=== PATIENT | female | born 1960 | race Caucasian/White ===

== ENCOUNTER 2017-09-06 10:50 | Inpatient (IN) | payer BC ==
[~2017-09-06] VITALS: Ht 157.5 cm; Wt 63.5 kg
--- NOTE | 2017-09-06 11:25 | NUR ---
PATIENT TO ED DT RIGHT SIDE FACIAL DROOP AND NUMBNESS X 2 DAYS. PATIENT IS AWAKE AND ALERT. SATING WELL ON ROOM AIR, CURRETNLY RECEIVING CHEMO FOR BREAST CANCER, LAST CHEMO WAS MONDAY. PATIENT ABLE TO AMBULATE. AFEBRILE. VSS
[2017-09-06 12:57] LABS: BASOPHILS % (AUTO) 2.2 % (0.0-2.0); CREATININE 0.8 mg/dL (0.6-1.3); EOSINOPHILS # (AUTO) 0.1 /CMM (0.0-0.7); EOSINOPHILS % (AUTO) 3.6 % (0.0-6.0); HEMATOCRIT 31 % (33-45); HEMOGLOBIN 10.2 g/dL (11.5-14.8); LYMPHOCYTES # (AUTO) 1.2 /CMM (0.8-4.8); LYMPHOCYTES % (AUTO) 80.3 % (20.0-44.0); MEAN CORPUSCULAR HEMOGLOBIN 28 PG (26.0-33.0); MEAN CORPUSCULAR HGB CONC 33 g/dl (31.0-36.0); MEAN CORPUSCULAR VOLUME 85 fL (82-100); MONOCYTES # (AUTO) 0.1 /CMM (0.1-1.30); MONOCYTES % (AUTO) 7.4 % (2.0-12.0); NEUTROPHILS # (AUTO) 0.1 /CMM (1.8-8.9); NEUTROPHILS % (AUTO) 6.5 % (43.0-81.0); PLATELET COUNT (AUTO) 257 /CMM (150-450); RDW COEFFICIENT OF VARIATION 22.5 (11.5-15.0); RED BLOOD CELL COUNT(AUTO) 3.67 MIL/uL (4.0-5.2)
--- NOTE | 2017-09-06 12:58 | NUR ---
PAGED DR GARCIA FOR CONSULT
[2017-09-06 12:59] LABS: PROTHROMBIN TIME 10.4 SECS (9.5-12.7)
[2017-09-06 13:02] LABS: ALBUMIN 3.2 g/dL (3.4-5.0); BILIRUBIN,TOTAL 0.8 mg/dL (0.2-1.0); MAGNESIUM 2.1 mg/dL (1.8-2.4); PHOSPHORUS 1.9 mg/dL (2.5-4.9)
[2017-09-06 13:03] LABS: WHITE BLOOD COUNT (AUTO) 1.5 K/uL (4.3-11.0)
[2017-09-06] MEDS ORDERED: ACYCLOVIR 200 MG CAPSULE ONE (13:27)
[2017-09-06] MEDS ORDERED: predniSONE 20 MG TABLET ONE (13:27)
[2017-09-06] MEDS ORDERED: predniSONE 20 MG TABLET PO ONE (13:30)
[2017-09-06] MEDS ORDERED: ACYCLOVIR 200 MG CAPSULE PO ONE (13:30)
--- NOTE | 2017-09-06 13:34 | NUR ---
PO MEDS GIVEN ORDERED; NO ASPIRATION NOTED
[2017-09-06] MEDS ORDERED: HYDR-551 PO ×2 (13:38)
[2017-09-06] MEDS ORDERED: GABA-534 PO (13:38)
[2017-09-06] MEDS ORDERED: LEVO50TA8 PO (13:38)
[2017-09-06] MEDS ORDERED: POTASSIUM CHLORIDE 20 MEQ TAB.PRT.SR PO ONE ×2 (14:00→14:06)
[2017-09-06 14:13] LABS: BAND % (MANUAL) 3 % (0.0-5.0); EOSINOPHILS % (MANUAL) 4 % (0-4); LYMPHOCYTES % (MANUAL) 75 % (16-48); MONOCYTES % (MANUAL) 7 % (0-11.0); NEUTROPHILS % (MANUAL) 7 (42-76); REACTIVE LYMPHOCYTES 4 % (0-0)
--- NOTE | 2017-09-06 14:21 | NUR ---
REPORT GIVEN TO INGA HIGHTOWER FOR CHUY
--- NOTE | 2017-09-06 14:58 | NUR ---
PATIENT TRANSPORTED TO TELE. S
[2017-09-06 15:30] VITALS: BP 135/86
[2017-09-06] MEDS ORDERED: K PHOS NEUTRAL 250 MG TABLET PO ONE (15:30)
--- NOTE | 2017-09-06 15:30 | NUR ---
SOURCING ANALYST ADMITTING NOTES ADMITTED PT FROM ER WITH DX OF LEFT FACIAL WEAKNESS WITH NEUTROPENIA.PT IS ALERT AND ORIENTED X4.AMBULATES AD SANTOS WITH STEADY GAIT.PT C/O BACK PAIN(PA 11/18) DUE TO SPINAL SX 35 YRS AGO.DENIES ANY DISTRESS.SKIN INTACT.PT GETS CHEMO EVERY 3 WKS() IN [facility].SISTER AT BEDSIDE STATING THAT PT HAS MOUTH SORES DUE TO CHEMO AND IS TAKING ACYCLOVIR.CALL LIGHT PLACED WITHIN REACH.
[2017-09-06 16:00] VITALS: BP 135/86
[2017-09-06] MEDS ORDERED: IV NS 0.9% 1,000 ML IV PRN (16:30)
[2017-09-06] MEDS ORDERED: ZOLPIDEM TARTRATE 5 MG TABLET PO PRN (16:30)
[2017-09-06] MEDS ORDERED: Z GUARD REMEDY 2 OZ OINT TP PRN (16:30)
[2017-09-06] MEDS ORDERED: ACETAMINOPHEN 325 MG TABLET PO PRN (16:30)
[2017-09-06] MEDS ORDERED: HYDROCODONE/APAP 10/325MG 1 EA TABLET PO PRN (16:30)
[2017-09-06] MEDS ORDERED: MORPHINE SULFATE INJ 2 MG/ML DISP.SYRIN IV PRN (16:30)
[2017-09-06] MEDS ORDERED: ONDANSETRON HCL/PF 4 MG/2 ML VIAL IVP PRN (16:30)
[2017-09-06] MEDS ORDERED: HYDROMORPHONE INJ 2 MG/ML DISP.SYRIN IV PRN (17:00)
--- NOTE | 2017-09-06 17:11 | NUR ---
SEEN BY DR LEONE WITH ORDERS FOR LUMBAR PUNCTURE.PT/FAMILY REFUSED.DR LEONE AT BEDSIDE TALKING TO THE FAMILY.WITH ORDER OF MRI BRAIN WITH CONTRAST STAT.NOTIFIED RADIOLOGY C/O PABLO WHO WILL NOTIFY MURALI AND NEEDS APPROVAL OF DR IRWIN.
[2017-09-06] MEDS ORDERED: TEMAZEPAM 15 MG CAPSULE PO PRN (17:30)
--- NOTE | 2017-09-06 17:50 | NUR ---
DR LEONE IS AT BEDSIDE DOING LUMBAR PUNCTURE PROCEDURE AT THIS TIME.WILL ADMINISTER NEURONTIN PO LATER POST LUMBAR PUNCTURE.
--- NOTE | 2017-09-06 18:10 | NUR ---
S/P LUMBAR PUNCTURE PROCEDURE BY DR LEONE DONE AND OBTAINED 8.75 ML LUMBAR FLUID AND SENT TO PATHOLOGY FOR PATHOLOGY AND CYTOLOGY TESTS.NORCO 10/325 MG 1 TAB PO,NEURONTIN AND HOOKED IVF NS AT 75 ML/HR INFUSION GIVEN.
[2017-09-06] MEDS: GABAPENTIN 300 MG CAPSULE PO SCH ×2 (18:34→21:48)
[2017-09-06 19:12] LABS: CSF GLUCOSE 88 mg/dL (40-70); CSF PROTEIN 46.5 mg/dL (15-45)
--- NOTE | 2017-09-06 19:30 | NUR ---
TELE/DERRICK CAR OPERATOR; RECEIVED PT IN BED AWAKE, ALERT AND ORIENTED. ON REVERSE ISOLATION OBSERVED. IVF ON PROGRESS. BREATHING NON LABORED. BED ON LOWER POSITIONED AND LOCKED FOR SAFETY. SIDE RAILS UPPER PART OF BED ARE UP FOR SAFETY. WILL CONTINUE TO MONITOR. CALL LIGHT WITHIN REACH.
--- NOTE | 2017-09-06 19:45 | NUR ---
TELE/SLASHER TENDER HELPER; PT WENT TO RADIOLOGY FOR MRI FOR THE BRAIN VIA WHEELCHAIR WITH NEGATIVE TURNER.
[2017-09-06 20:00] VITALS: BP 119/75
--- NOTE | 2017-09-06 20:30 | NUR ---
TELE/SUPERINTENDENT DRILLING AND PRODUCTION; PT BACK FOR MRI WITH THE TELECOM MANAGER VIA WHEELCHAIR.
[2017-09-06] MEDS ORDERED: GADOVERSETAMIDE 2.5 MMOL/5 ML VIAL IJ ONE (20:37)
[2017-09-06] MEDS ORDERED: LANOLIN/MIN OIL/PETROLAT,WHT 3.5 GM TUBE RIGHTEYE SCH (22:00)
--- NOTE | 2017-09-06 22:00 | NUR ---
TELE/VOLLEYBALL ASSISTANT COACH; WENT BRP WITH ASSIST. VOIDED ONLY. BACK TO BED WITH HELP.
[2017-09-06] MEDS: DEXAMETHASONE SOD PHOSPHATE 4 MG/ML VIAL IV SCH (23:26)
[2017-09-07] VITALS: BP 112/72
--- NOTE | 2017-09-07 | NUR ---
TELE/GEOGRAPHIC INFORMATION SYSTEMS ANALYST; SLEEPING AT THIS TIME.
--- NOTE | 2017-09-07 01:30 | NUR ---
TELE/CRAWLER TRACTOR OPERATOR; PT ASSISTED TO THE BATHROOM VOIDED ONLY. ASSISTED BACK TO BED. PT ASKED FOR WARM TEA. PT SAID SHE HAS SLIGHT SORE THROAT ONLY WHEN SHE SWALLOW.
[2017-09-07 04:00] VITALS: BP 124/91
--- NOTE | 2017-09-07 06:17 | NUR ---
TELE/OTOLARYNGOLOGY SURGEON; PT SLEPT FAIRLY. IVF ON PROGRESS. VOIDED AT THE BATHROOM. PT WAS ON ST 103 - 104. NOTED SHE COUGHED OCC. DRY. WILL CONTINUE TO MONITOR. CALL LIGHT WITHIN REACH. WILL ENDORSE TO THE DAY SHIFT NURSE.
[2017-09-07] MEDS: DEXAMETHASONE SOD PHOSPHATE 4 MG/ML VIAL IV SCH ×2 (06:38→12:07)
[2017-09-07 06:45] LABS: EOSINOPHILS % (AUTO) 0.3 % (0.0-6.0); HEMATOCRIT 34 % (33-45); HEMOGLOBIN 10.9 g/dL (11.5-14.8); LYMPHOCYTES # (AUTO) 1.3 /CMM (0.8-4.8); LYMPHOCYTES % (AUTO) 77.2 % (20.0-44.0); MEAN CORPUSCULAR HEMOGLOBIN 28 PG (26.0-33.0); MEAN CORPUSCULAR HGB CONC 33 g/dl (31.0-36.0); MEAN CORPUSCULAR VOLUME 86 fL (82-100); MONOCYTES # (AUTO) 0.2 /CMM (0.1-1.30); MONOCYTES % (AUTO) 12.2 % (2.0-12.0); NEUTROPHILS # (AUTO) 0.2 /CMM (1.8-8.9); NEUTROPHILS % (AUTO) 10.3 % (43.0-81.0); PLATELET COUNT (AUTO) 278 /CMM (150-450); RDW COEFFICIENT OF VARIATION 22.9 (11.5-15.0); RED BLOOD CELL COUNT(AUTO) 3.91 MIL/uL (4.0-5.2)
[2017-09-07 07:00] LABS: ALBUMIN 3.2 g/dL (3.4-5.0); BILIRUBIN,TOTAL 0.8 mg/dL (0.2-1.0); CALCIUM, SERUM 9.2 mg/dL (8.5-10.1); CREATININE 0.9 mg/dL (0.6-1.3); MAGNESIUM 2.3 mg/dL (1.8-2.4); PHOSPHORUS 2.5 mg/dL (2.5-4.9); POTASSIUM 3.9 mmol/L (3.5-5.1); TOTAL PROTEIN, SERUM 8.5 g/dL (6.4-8.2)
[2017-09-07 07:02] LABS: WHITE BLOOD COUNT (AUTO) 1.7 K/uL (4.3-11.0)
[2017-09-07 07:12] LABS: THYROID STIMULATING HORMONE 0.18 uIU/mL (0.358-3.74)
[2017-09-07] MEDS ORDERED: LEVOTHYROXINE SODIUM 50 MCG TABLET PO SCH (07:30)
[2017-09-07 08:00] VITALS: BP 120/79
--- NOTE | 2017-09-07 08:30 | NUR ---
RECEIVED PATIENT IN STABLE CONDITION. PATIENT IS ALERT AND ORIENTED. IN NO APPARENT DISTRESS. BEDSIDE RAILS ARE UP X2. BED IS LOCKED AND LOWERED. WILL CONTINUE TO MONITOR.
[2017-09-07] MEDS: GABAPENTIN 300 MG CAPSULE PO SCH ×2 (08:37→12:07)
[2017-09-07 09:46] LABS: BAND % (MANUAL) 1 % (0.0-5.0); EOSINOPHILS % (MANUAL) 3 % (0-4); LYMPHOCYTES % (MANUAL) 74 % (16-48); MONOCYTES % (MANUAL) 11 % (0-11.0); NEUTROPHILS % (MANUAL) 11 (42-76)
[2017-09-07] MEDS ORDERED: VALACYCLOVIR HCL 500 MG TABLET PO SCH (13:30)
[2017-09-07] MEDS ORDERED: PRED20TA PO (14:11)
[2017-09-07] MEDS ORDERED: ACYC400T PO (14:11)
--- NOTE | 2017-09-07 15:41 | NUR ---
PATIENT DISCHARGED IN STABLE CONDITION.
[2017-09-11 09:15] LABS: *WEST NILE VIRUS IgG, CSF Negative (Negative)
[2017-09-11 11:14] LABS: *WEST NILE VIRUS IgM, CSF Negative (Negative); VDRL, CSF Non Reactive (Non Rea:<1:1)
[2017-09-11 12:11] LABS: *BACT BETA STREP (GROUP B) AG Negative (Negative); *BACT NEISSERIA MENING. AG Negative (Negative); *BACT STREP PNEUMONIAE AG Negative (Negative); *CRYPTOCOCCUS AG, CSF Negative (Negative)
== END 2017-09-07 15:31 | disposition home or self-care (01) | DRG 598 ==
LOC: ER 10:56 → TELE 13:54 → MED 09-07 07:59
PROVIDERS: ADMIT Nurse Practitioner Acute Care; ATTEND Nurse Practitioner Acute Care
PROC: 009U3ZX Drainage of Spinal Canal, Percutaneous Approach, Diagnostic (ICD-10-PCS; principal; 2017-09-06)
DX: C50.919 Malignant neoplasm of unspecified site of unspecified female breast (principal); C79.31 Secondary malignant neoplasm of brain; D70.9 Neutropenia, unspecified; E87.6 Hypokalemia; Z79.899 Other long term (current) drug therapy; D64.9 Anemia, unspecified; Z92.3 Personal history of irradiation; G51.0 Bell's palsy; Z92.21 Personal history of antineoplastic chemotherapy
CPT/HCPCS: 36415; 70450-TC; 70553-TC; 71010-TC; 80053-TC; 80061-TC; 83735-TC; 84100-TC; 84443-TC; 84484-TC; 85025-TC; 85730-TC; 86592; 86635; 86694; 86788; 86789; 87070-TC; 87081-TC; 87802; 87899; 89051-TC; 93307-TC; 93880-TC; A4606; A9579; J1100; J7030; Z7610

== ENCOUNTER 2017-09-08 12:07 | Inpatient (IN) | payer BC ==
[~2017-09-08] VITALS: Ht 157.5 cm; Wt 75.7 kg
[2017-09-08] VITALS (12 sets, daily range): BP systolic 81–125; BP diastolic 43–74
[~2017-09-08 12:07] MED LIST: ACYC400T PO; GABA-534 PO; HYDR-551 PO; LEVO50TA8 PO; PRED20TA PO
--- NOTE | 2017-09-08 12:20 | NUR ---
[id number] FROM HOME: ALOC. FEVER, 103.3 UPON ARRIVAL TO ER. PATIENT A/OX 1. BREATHING EVEN AND UNLABORED. NO SOB. VITALS STABLE. SAFETY AND COMFORT MEASURES IN PLACE. NEW IV STARTED ON LAC, 20 G. BLOOD DRAWN AND SENT TO LAB, SEPSIS WORKUP ORDERED, WILL CONTINUE TO MONITOR.
[2017-09-08] MEDS ORDERED: IV NS 0.9% 1,000 ML BAG IV ONE ×2 (12:30)
[2017-09-08] MEDS ORDERED: ACETAMINOPHEN 650 MG/SUPP.RECT RC ONE ×2 (12:30→12:32)
[2017-09-08] MEDS ORDERED: PIPERACILLIN /TAZOBACTAM 3.375 G in IV D5W 50 ML IV ONE (12:30)
[2017-09-08 12:39] LABS: BASOPHILS % (AUTO) 0.5 % (0.0-2.0); EOSINOPHILS % (AUTO) 0.4 % (0.0-6.0); HEMATOCRIT 32 % (33-45); HEMOGLOBIN 10.4 g/dL (11.5-14.8); LYMPHOCYTES # (AUTO) 0.8 /CMM (0.8-4.8); LYMPHOCYTES % (AUTO) 46.7 % (20.0-44.0); MEAN CORPUSCULAR HEMOGLOBIN 28 PG (26.0-33.0); MEAN CORPUSCULAR HGB CONC 32 g/dl (31.0-36.0); MEAN CORPUSCULAR VOLUME 85 fL (82-100); MONOCYTES # (AUTO) 0.7 /CMM (0.1-1.30); MONOCYTES % (AUTO) 40.2 % (2.0-12.0); NEUTROPHILS # (AUTO) 0.2 /CMM (1.8-8.9); NEUTROPHILS % (AUTO) 12.2 % (43.0-81.0); PLATELET COUNT (AUTO) 413 /CMM (150-450); RED BLOOD CELL COUNT(AUTO) 3.79 MIL/uL (4.0-5.2)
[2017-09-08 12:42] LABS: WHITE BLOOD COUNT (AUTO) 1.7 K/uL (4.3-11.0)
[2017-09-08 12:43] LABS: CALCIUM, SERUM 9.1 mg/dL (8.5-10.1); CARBON DIOXIDE 24 mmol/L (21-32); CHLORIDE 106 mmol/L (98-107); CREATININE 0.9 mg/dL (0.6-1.3); GLUCOSE 91 mg/dL (74-106); POTASSIUM 3.5 mmol/L (3.5-5.1); SODIUM SERUM 141 mmol/L (136-145); UREA NITROGEN, BLOOD 4 mg/dL (7-18)
[2017-09-08 12:47] LABS: INR 1.1 (0.87-1.13); PROTHROMBIN TIME 11.4 SECS (9.5-12.7)
[2017-09-08 12:49] LABS: ALANINE AMINOTRANSFERASE 102 U/L (12-78); ALBUMIN 3.2 g/dL (3.4-5.0); ALKALINE PHOSPHATASE 680 U/L (46-116); ASPARTATE AMINOTRANSFERASE 93 U/L (15-37); BILIRUBIN,DIRECT 0.3 mg/dL (0.0-0.2); BILIRUBIN,TOTAL 0.9 mg/dL (0.2-1.0)
--- NOTE | 2017-09-08 12:50 | NUR ---
PATIENT MEDICATED PER MD ORDERS.
[2017-09-08 12:51] LABS: TROPONIN I < 0.017 ng/mL (0.00-0.056)
[2017-09-08] MEDS ORDERED: FLUCONAZOLE IN NS 100 MG in PREMIX 1 EA IV SCH ×4 (13:00→16:00)
--- NOTE | 2017-09-08 13:12 | NUR ---
PATIENT TAKEN TO CT VIA STRETCHER
--- NOTE | 2017-09-08 13:25 | NUR ---
PATIENT RETURNED FROM CT.
[2017-09-08] MEDS ORDERED: hydrALAZINE HCL IV 20 MG VIAL IV ONE (13:30)
[2017-09-08] MEDS ORDERED: TBO-FILGRASTIM 480 MCG/0.8 ML ML SQ ONE (13:30)
[2017-09-08 14:24] LABS: APPEARANCE,URINE Clear (CLEAR); BILIRUBIN,URINE Negative (NEGATIVE); BLOOD, URINE Negative Ery/uL (NEGATIVE); COLOR,URINE Light yellow (YELLOW); KETONES,URINE Negative (NEGATIVE); LEUKOCYTE ESTERASE ,URINE Negative (NEGATIVE); NITRITE, URINE Negative (NEGATIVE); PROTEIN,URINE Negative (NEGATIVE); UGLUCOSE Negative (NEGATIVE); UROBILINOGEN,URINE 0.2 EU/dL (0.2)
[2017-09-08 14:30] LABS: BACTERIA,URINE None seen /HPF (None Seen); RBC,URINE 0-3 /HPF (0-2); SQUAMOUS EPITHELIAL CELL,UR Few /HPF (None Seen); WBC,URINE 0-3 /HPF (0-3)
--- NOTE | 2017-09-08 14:50 | NUR ---
SECOND IV STARTED ON RAC, 20 G.
--- NOTE | 2017-09-08 15:00 | NUR ---
REPORT GIVEN TO ASHLEY XIONG FOR CHUY UPON ADMISSION.
--- NOTE | 2017-09-08 15:05 | NUR ---
NURSE INFORMATICIST- INITIAL ADMISSION NOTE RECEIVED PT FROM ER VIA [facility]ANO. DX: NEUTROPENIC FEVER POST CHEMOTHERAPY. PT A/O X3. ON 2L NC, RESPIRATIONS EVEN AND UNLABORED, NO SOB OR DISTRESS PRESENT. BEDSIDE MONITOR REVEALS SINUS TACHYCARDIA. YUAN CATHETER PRESENT & DRAINING TO GRAVITY. TWO IVS PRESENT: 1) RAC 20G AND 2) LAC 20G HL. BOTH IVS FLUSHED, PATENT, INTACT AND FREE OF REDNESS, SWELLING & INFLAMMATION. RECTAL TEMPERATURE CHECKED= 99.1. SAFETY MEASURES TAKEN: BED LOCKED AND IN LOW POSITION, SIDE RAILS UP X2, BED ALARM ON AND CALL LIGHT WITHIN REACH, WILL CONTINUE TO MONITOR.
--- NOTE | 2017-09-08 15:10 | NUR ---
PATIENT TRANSPORTED TO ICU 260 VIA ACLS PROTOCOL. RNASHLEY TO PROVIDE CHUY.
[2017-09-08] MEDS ORDERED: Z GUARD REMEDY 2 OZ OINT TP PRN (15:30)
[2017-09-08] MEDS ORDERED: ACETAMINOPHEN 325 MG TABLET PO PRN (15:30)
[2017-09-08] MEDS ORDERED: VANCOMYCIN 1.5 GM in IV D5W 500 ML IV ONE (15:30)
[2017-09-08 15:31] LABS: LYMPHOCYTES % (MANUAL) 48 % (16-48); MONOCYTES % (MANUAL) 42 % (0-11.0); NEUTROPHILS % (MANUAL) 10 (42-76)
[2017-09-08] MEDS: IV NS 0.9% 1,000 ML IV PRN (15:38)
[2017-09-08] MEDS: ENOXAPARIN SODIUM 40 MG/0.4 ML DISP.SYRIN SQ SCH (15:38)
[2017-09-08] MEDS: ONDANSETRON HCL/PF 4 MG/2 ML VIAL IVP PRN (15:38)
[2017-09-08] MEDS ORDERED: FEE PK DOSING 1 MIN EA MC ONE (15:43)
[2017-09-08] MEDS: HYDROCODONE/APAP 10/325MG 1 EA TABLET PO PRN ×2 (15:53→21:42)
[2017-09-08] MEDS ORDERED: PIPERACILLIN /TAZOBACTAM 3.375 G in IV D5W 50 ML IV SCH (16:00)
--- NOTE | 2017-09-08 16:13 | NUR ---
ELLA met with pillowcase cutter Chau and pt's sister Laury to discuss possible applying for IHSS and Full scope medi-murray. Pt. lives with her 13 year old child and the child's father. Pt. is unable to care for her self independently due to her illness and requires a caregiver at all times. ELLA contacted [facility] at [phone] and placed an IHSS application via phone along with a request for full scope medi-murray. Pt's [facility] case # is [id number]. ELLA followed up with pillowcase cutter Chau and gave her the case number to give to the pt's sister Laury.
[2017-09-08] MEDS: VANCOMYCIN 1 GM in IV D5W 250 ML IV SCH (16:25)
[2017-09-08] MEDS: NYSTATIN (PYXIS) 500,000 UNIT/5 ML ORAL.SUSP PO SCH (17:01)
[2017-09-08] MEDS: GABAPENTIN 300 MG CAPSULE PO SCH ×2 (17:02→21:41)
[2017-09-08] MEDS: VALACYCLOVIR HCL 500 MG TABLET PO SCH (17:02)
[2017-09-08] MEDS: predniSONE 20 MG TABLET PO SCH (18:00)
--- NOTE | 2017-09-08 18:20 | NUR ---
FINANCIAL PROJECT MANAGER- INFORMED Murray LEONE ENVIRONMENTAL EMERGENCIES PLANNER PT'S BLOOD PRESSURE IS 86/57, HR= 120. PT NAUSEOUS & VOMITING. LAST ZOFRAN GIVEN WAS AT 1540. PER ENVIRONMENTAL EMERGENCIES PLANNER, ORDER 1L NS BOLUS. PREDNISONE 60 MG DUE AT 1800 HELD DUE TO NAUSEA/VOMITING. WILL CONTINUE TO MONITOR.
[2017-09-08] MEDS: PIPERACILLIN /TAZOBACTAM 3.375 G in IV D5W 50 ML IV SCH (18:23)
--- NOTE | 2017-09-08 18:45 | NUR ---
BARIATRIC NURSE- PT HAS HAD 3 LOOSE BMS. STOOL SAMPLE COLLECTED FOR C-DIFF AND SENT TO LAB. Addendum: 09/08/17 at 1949 by ASHLEY MIN RN MRSA SWAB COLLECTED WELL. SENT TO LAB.
--- NOTE | 2017-09-08 18:45 | NUR ---
brokerage office manager and social director met with sister Laury. 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 Joann Adame [phone]. Patient lives at home with her spouse Ham and their 13year old son. Prior to admission, patient was ambulating without assistive device but with poor balance and unstable gait and was falling. She requires limited assist with adl's. Her main support system is her sister Laury and family but not available 24hrs due to both patient spouse and sister are working everyday. Family want to take patient home once discharge. Pt. is unable to care for her self independently due to her illness and requires a caregiver at all times. caseworker contacted [facility] at [phone] and placed an [facility] application via phone along with a request for full scope medi-murray. Pt's [facility] case # is [id number]. Addendum: 09/08/17 at 2055 by JUANITO العلي RN Amended: Links added.
[2017-09-08] MEDS ORDERED: IV NS 0.9% 1,000 ML IV ONE (19:00)
--- NOTE | 2017-09-08 19:00 | NUR ---
JOB CHANGE CREW MEMBER- 1L NS BOLUS STARTED PER BUYING INTERN ORDER. INFORMED TPako LEONE BUYING INTERN REPEAT LACTIC ACID= 8.6. NO NEW ORDERS RECEIVED AT THIS TIME. ENDORSED TO MERCHANDISE WORKER NURSE FOR CONTINUITY OF CARE.
--- NOTE | 2017-09-08 21:00 | NUR ---
AUDIO VISUAL PRODUCTION SPECIALIST - REC'D VERBAL REPORT FROM ASHLEY XIONG. REC'D PT. IN ISOLATION FOR NEUTROPENIC PRECAUTIONS. PT. HAS STAGE 4 BREAST CA (RT). + BRAIN/METS. PT.IS A&OX3. SPEAKS FLUENT [place] & [place]. PT'S & DAUGHTER CAME W/ FOOD FROM HOME. PT'S APPETITE IS POOR. PT. STATES SHE IS HUNGRY, BUT BECOMES NAUSEATED EASILY. 3RD LACTIC ACID DRAWN BY LAB. CRITICAL VALUE IS 7.3. TRENDING DOWN. PHONED FOR AMBIEN ORDER AT PT'S REQUEST. PT. SIGNED CONSENT FOR PICC LINE. GAVINO XIONG IS AT INSERTING PICC LINE. PT.IS ON O2/2L/NC, LUNG PAYNE CLEAR. O2 SATS ARE WNL. AFEBRILE. EDUCATIONAL SPEECH LANGUAGE CLINICIAN SHOWS ST/TEENS TO 120'S. ONE LITER IV BOLUS FINISHED. PT. ALSO HAS 0.9%NS INFUS- ING AT 100CC/HR. RAC & LAC PIV'S ARE PATENT TO FLUSH. YUAN CATH TO GRAVITY W/GOOD UOP. SKIN INTACT/PALE/COOL TO TOUCH..+1 EDEMA/GEN. TO BODY. CONT. POC.
[2017-09-08] MEDS ORDERED: ZOLPIDEM TARTRATE 5 MG TABLET ONE (21:35)
[2017-09-08] MEDS: METRONIDAZOLE 500 MG TABLET PO SCH (21:41)
[2017-09-08] MEDS: ZOLPIDEM TARTRATE 5 MG TABLET PO PRN (22:39)
[2017-09-09] VITALS (33 sets, daily range): BP systolic 91–150; BP diastolic 54–96
--- NOTE | 2017-09-09 | NUR ---
PETROGRAPHER - PT. IS HAVING LITTLE BIT OF NAUSEA STILL. ZOFRAN 4 MG IVP & NORCO ONE TAB/PO ADM. FOR GEN. PAIN. PT.ASKED FOR HER "SLEEPING PILL". AMBIEN 5MG/PO ADM 22:40. PT.IS CURRENTLY RESTING W/EYES CLOSED. ST IN THE TEENS/LOW 100'S. NO S/S OF DISTRESS/DISCOMFORT. CONT.POC.
[2017-09-09] MEDS: PIPERACILLIN /TAZOBACTAM 3.375 G in IV D5W 50 ML IV SCH ×4 (00:06→17:15)
[2017-09-09] MEDS: IV NS 0.9% 1,000 ML IV PRN ×2 (04:22→21:40)
[2017-09-09] MEDS: VANCOMYCIN 1 GM in IV D5W 250 ML IV SCH ×2 (04:22→16:33)
[2017-09-09] MEDS: VALACYCLOVIR HCL 500 MG TABLET PO SCH ×2 (04:32→16:36)
[2017-09-09] MEDS: METRONIDAZOLE 500 MG TABLET PO SCH ×3 (04:33→21:42)
[2017-09-09 04:37] LABS: HEMOGLOBIN 8.5 g/dL (11.5-14.8); NEUTROPHILS # (AUTO) 1.1 /CMM (1.8-8.9); NEUTROPHILS % (AUTO) 18.7 % (43.0-81.0); WHITE BLOOD COUNT (AUTO) 5.9 K/uL (4.3-11.0)
[2017-09-09 04:44] LABS: BASOPHILS % (AUTO) 0.1 % (0.0-2.0); EOSINOPHILS % (AUTO) 0.5 % (0.0-6.0); HEMATOCRIT 27 % (33-45); LYMPHOCYTES # (AUTO) 1.4 /CMM (0.8-4.8); LYMPHOCYTES % (AUTO) 23.6 % (20.0-44.0); MEAN CORPUSCULAR HEMOGLOBIN 27 PG (26.0-33.0); MEAN CORPUSCULAR HGB CONC 32 g/dl (31.0-36.0); MEAN CORPUSCULAR VOLUME 86 fL (82-100); MONOCYTES # (AUTO) 3.4 /CMM (0.1-1.30); MONOCYTES % (AUTO) 57.1 % (2.0-12.0); PLATELET COUNT (AUTO) 326 /CMM (150-450); RDW COEFFICIENT OF VARIATION 23.7 (11.5-15.0); RED BLOOD CELL COUNT(AUTO) 3.14 MIL/uL (4.0-5.2)
[2017-09-09] MEDS: ONDANSETRON HCL/PF 4 MG/2 ML VIAL IVP PRN (04:46)
[2017-09-09 04:48] LABS: ALBUMIN 2.3 g/dL (3.4-5.0); BILIRUBIN,TOTAL 0.9 mg/dL (0.2-1.0); CALCIUM, SERUM 7.2 mg/dL (8.5-10.1); CREATININE 1.1 mg/dL (0.6-1.3); MAGNESIUM 1.3 mg/dL (1.8-2.4); PHOSPHORUS 3.2 mg/dL (2.5-4.9); POTASSIUM 4.6 mmol/L (3.5-5.1); TOTAL PROTEIN, SERUM 6.3 g/dL (6.4-8.2)
[2017-09-09 04:52] LABS: INR 1.42 (0.87-1.13); PROTHROMBIN TIME 14.8 SECS (9.5-12.7)
[2017-09-09 04:56] LABS: THYROID STIMULATING HORMONE 0.502 uIU/mL (0.358-3.74)
[2017-09-09 05:14] LABS: EOSINOPHILS % (MANUAL) 1 % (0-4); LYMPHOCYTES % (MANUAL) 26 % (16-48); MONOCYTES % (MANUAL) 50 % (0-11.0); NEUTROPHILS % (MANUAL) 23 (42-76)
--- NOTE | 2017-09-09 05:30 | NUR ---
MAGNETIC PROSPECTOR - CRITICAL LACTIC ACID VALUE PHONED=2.6. TRENDING DOWN. DOCUMENTED. PT.WAS ADM. A COMPLETE BEDBATH DUE TO MIN. FECAL INC. DIAPERED. ORAL/ABBY CARE ADMINISTERED. PT. ASKED FOR RN TO LOOK INTO HER MOUTH/THROAT. WHITISH DOTS ARE SCATTERED IN THE MOUTH/BACK OF THROAT. PT.IS ALREADY ON ABX'S & FUNGAL MEDS. LOW GRADE TEMPS-99'S. PT. REMAINS ON NEUTROPENIC/REVERSE ISOLATION. WBC WENT UP TO 5.9 FROM 1.7. PT. IS RESTING W/EYES CLOSED. RT. EYE APPEARS WEAK/SMILE IS MIN.WEAKER ON RT.SIDE. PT.WAS ADM. ZOFRAN 4MG IVP AGAIN AT 04:46AM. CONT. POC. WILL ENDORSE REPORT TO SAMARA XIONG.
--- NOTE | 2017-09-09 08:00 | NUR ---
ICU/RN PT IS IN THE BED ON 2L N/C .SAT O2-99%.V/S STABLE,AFEBRILE.NO PAIN REPORTED AT THIS TIME.IV INFUSING ORDERED.F/C DRAINING WITH YELLOW URINE.PT HAS RIGHT SIDE FACE DROOPING,DEALATE SPEECH..PT HAS BREAST CA WITH METASTASIS TO THE BRAIN AND LIVER.LABS REVIEW.MD NOTIFIED.NEW ORDERS RECEIVED.GENERALIZED EDEMA PRESENT. PT IS POST CHEMO THERAPY.
--- NOTE | 2017-09-09 09:00 | NUR ---
ICU/RN DUE MEDS ARE GIVEN ORDERED.PT EATS 50 % FROM HER MEAL TRAY.
[2017-09-09] MEDS: GABAPENTIN 300 MG CAPSULE PO SCH ×4 (09:20→21:42)
[2017-09-09] MEDS: predniSONE 20 MG TABLET PO SCH (09:20)
[2017-09-09] MEDS: NYSTATIN (PYXIS) 500,000 UNIT/5 ML ORAL.SUSP PO SCH ×3 (09:20→16:35)
[2017-09-09] MEDS: LEVOTHYROXINE SODIUM 50 MCG TABLET PO SCH (09:29)
[2017-09-09] MEDS: HYDROCODONE/APAP 10/325MG 1 EA TABLET PO PRN (09:41)
[2017-09-09] MEDS: Magnesium 1GM/D5W 100ML PREMIX 100 ML IV SCH ×4 (11:20→14:27)
--- NOTE | 2017-09-09 14:00 | NUR ---
ICU/RN MG LEVEL 1.3.REPLACED WITH 4 GM OF MAGNESIUM SULFATE IV.PT AMBULATED WITH PHYSICAL THERAPIST .VERY WEAK. CONTINUE MONITORING.
[2017-09-09] MEDS: FLUCONAZOLE IN NS 100 MG in PREMIX 1 EA IV SCH ×2 (14:27)
[2017-09-09] MEDS ORDERED: TBO-FILGRASTIM 480 MCG/0.8 ML ML SQ SCH (18:00)
--- NOTE | 2017-09-09 18:00 | NUR ---
ICU/RN PM CARE PROVIDED.PT HAS MULTIPLY YELLOW LIQUID STOOLS.REDNESS ON ABBY AREA NOTED.DUE MEDS ARE GIVEN ORDERED.REPOSITION FOR COMFORT.
[2017-09-09] MEDS: ZOLPIDEM TARTRATE 5 MG TABLET PO PRN (21:42)
[2017-09-09] MEDS: ENOXAPARIN SODIUM 40 MG/0.4 ML DISP.SYRIN SQ SCH (21:43)
[2017-09-10] VITALS (24 sets, daily range): BP systolic 117–169; BP diastolic 60–103
[2017-09-10] MEDS: HYDROCODONE/APAP 10/325MG 1 EA TABLET PO PRN ×2 (00:08→21:25)
[2017-09-10] MEDS: ONDANSETRON HCL/PF 4 MG/2 ML VIAL IVP PRN ×3 (00:08→20:22)
[2017-09-10] MEDS: PIPERACILLIN /TAZOBACTAM 3.375 G in IV D5W 50 ML IV SCH ×3 (00:08→11:16)
[2017-09-10 03:18] LABS: HEMATOCRIT 28 % (33-45); HEMOGLOBIN 8.8 g/dL (11.5-14.8); MEAN CORPUSCULAR HEMOGLOBIN 27 PG (26.0-33.0); MEAN CORPUSCULAR HGB CONC 31 g/dl (31.0-36.0); MEAN CORPUSCULAR VOLUME 87 fL (82-100); PLATELET COUNT (AUTO) 371 /CMM (150-450); RDW COEFFICIENT OF VARIATION 24.6 (11.5-15.0); RED BLOOD CELL COUNT(AUTO) 3.26 MIL/uL (4.0-5.2); WHITE BLOOD COUNT (AUTO) 27.1 K/uL (4.3-11.0)
[2017-09-10 03:27] LABS: CALCIUM, SERUM 7.8 mg/dL (8.5-10.1); CREATININE 0.9 mg/dL (0.6-1.3); POTASSIUM 3.2 mmol/L (3.5-5.1)
[2017-09-10 03:28] LABS: INR 1.15 (0.87-1.13)
[2017-09-10 03:46] LABS: BAND % (MANUAL) 12 % (0.0-5.0); LYMPHOCYTES % (MANUAL) 7 % (16-48); MONOCYTES % (MANUAL) 12 % (0-11.0); NEUTROPHILS % (MANUAL) 69 (42-76)
[2017-09-10] MEDS: METRONIDAZOLE 500 MG TABLET PO SCH ×3 (05:03→21:24)
[2017-09-10] MEDS: VALACYCLOVIR HCL 500 MG TABLET PO SCH ×2 (05:03→16:38)
[2017-09-10] MEDS: VANCOMYCIN 1 GM in IV D5W 250 ML IV SCH (05:09)
[2017-09-10 05:39] LABS: BILIRUBIN,DIRECT 0.4 mg/dL (0.0-0.2)
--- NOTE | 2017-09-10 07:34 | NUR ---
INITIAL QUALITY ASSURANCE CALIBRATOR NOTE RCVD PT AWAKE AND ALERT, SHOWING NO S/O DISTRESS/PAIN AT THIS TIME. ST ON TELE. TOLERATING O2 VIA NC. YUAN TO GRAVITY DRAINING YELLOW URINE. TEJA PICC C/D/I/PATENT. NO S/O INFILTRATION/PHLEBITIS OBSERVED IVF INFUSING. WILL CONTINUE TO MONITOR PT FOR SAFETY AND COMFORT. CALL LIGHT WITHIN REACH. BED IN LOW AND LOCKED POSITION.
[2017-09-10] MEDS: NYSTATIN (PYXIS) 500,000 UNIT/5 ML ORAL.SUSP PO SCH ×3 (08:43→16:36)
[2017-09-10] MEDS: IV NS 0.9% 1,000 ML IV PRN ×2 (08:43→17:40)
[2017-09-10] MEDS: predniSONE 20 MG TABLET PO SCH (08:44)
[2017-09-10] MEDS: GABAPENTIN 300 MG CAPSULE PO SCH ×4 (08:44→21:24)
[2017-09-10] MEDS: POTASSIUM CHLORIDE 20 MEQ TAB.PRT.SR PO SCH ×3 (08:44→10:43)
[2017-09-10] MEDS: LEVOTHYROXINE SODIUM 50 MCG TABLET PO SCH (08:46)
--- NOTE | 2017-09-10 11:27 | NUR ---
CARBON BRUSH MAKER NOTE DR. MANCIA AT BEDSIDE UPDATED ON PT'S CONDITION, INFORMED OF ABNORMAL AM LABS. NO NEW ORDERS RCVD. SHE WAS INFORMED OF PT'S ABDOMEN BEING VERY FIRM UPON PALPATION, SHE ACKNOWLEDGED. PT DRINKING FLUIDS WELL, ONE EPISODE OF NAUSEA AND DIARRHEA PRESENT. MD AWARE, NO FEVERS.
[2017-09-10] MEDS: FLUCONAZOLE IN NS 100 MG in PREMIX 1 EA IV SCH ×2 (13:26)
--- NOTE | 2017-09-10 13:31 | NUR ---
RESEARCH RN SPEC NOTE DR. LEONE CONTACTED PER PT CHANGE AMBIEN TO RESTORIL, AND PT NEEDS OINTMENT FOR EYES. WAITING FOR CALL BACK.
[2017-09-10 14:04] LABS: ABG BASE EXCESS -9.2 mmol/L; ABG OXYGEN SATURATION 93.3 % (92.0-98.5); ABG PCO2 31.4 mmHg (35.0-45.0); AaDO2 41.1 mmHg; COHb 0.7 % (0.5-1.5); MetHb 0.2 % (0.0-1.5); O2Hb 92.5 % (94.0-97.0); SITE, ABG Right Radial; VENT MODE, BG ROOM AIR
[2017-09-10] MEDS ORDERED: LORAZEPAM INJ 2 MG/ML VIAL IV PRN (15:00)
[2017-09-10] MEDS ORDERED: DIPHENOXYLATE HCL/ATROP SULF 1 UDTAB TABLET PO PRN (15:30)
--- NOTE | 2017-09-10 15:30 | NUR ---
HORSE EXERCISER NOTE DR. LEONE AT BEDSIDE INFORMED OF PT'S DIARRHEA AND PREVIOUS REQUESTED MEDICATIONS. HE SAID THAT WILL ENTER THE ORDERS. WILL F/U.
[2017-09-10] MEDS: ACIDOPHILUS/BULGARICUS 1 EACH TAB.CHEW PO SCH (16:36)
--- NOTE | 2017-09-10 17:00 | NUR ---
RN NOTES PT WAS BROUGHT UP FROM THE ICU. PT IS ON RA, RESPIRATIONS ARE EVEN AND UNLABORED. TEJA PICC LINE INTACT. SAFETY MEASURES ARE IN PLACE, CALL LIGHT IS IN REACH. WILL CONTINUE TO MONITOR.
--- NOTE | 2017-09-10 17:26 | NUR ---
MARINE INSURANCE CLAIM EXAMINER NOTE PT TRANSFERRED TO 3W ROOM 306 WITH BELONGINGS (PT'S CELL AND HIGH DENSITY TALC COATER OPERATOR) AND MEDICATIONS. NO PERSONAL ITEMS LEFT AT BEDSIDE. PT TRANSPORTED VIA BED SHOWING NO S/O DISTRESS/PAIN. Addendum: 09/10/17 at 1836 by RAMIN GALLARDO RN PT'S CARE ENDORSED TO INGA TAPIA. SHE WAS INFORMED THAT PT'S AKWA TEARS OINTMENT WILL BE SUPPLIED BY PHARMACY ONCE PT'S TRANSFERRED PER HERNAN SOTELO. WILLIE ACKNOWLEDGED.
[2017-09-10] MEDS: ERYTHROMYCIN BASE OPHTH 3.5 GM TUBE EACHEYE SCH (18:36)
--- NOTE | 2017-09-10 18:38 | NUR ---
RN NOTES PT IS RESTING COMFORTABLY IN BED WITH HOB SLIGHTLY ELEVATED. PT ABLE TO TOLERATE SOME DINNER. TEJA PICC LINE RUNNING NS @ 100ML/HR. EYE OINTMENT AT BEDSIDE ORDERED, TO BE APPLIED WHEN PT GOES TO SLEEP, PER PT REQUEST. PT DENIES ANY PAIN AT THIS TIME. SAFETY MEASURES ARE IN PLACE, CALL LIGHT IS IN REACH. WILL ENDORSE TO HOME HOSPICE RN RN FOR CONTINUITY OF CARE.
[2017-09-10] MEDS: LANOLIN/MIN OIL/PETROLAT,WHT 3.5 GM TUBE RIGHTEYE SCH ×4 (18:51→23:31)
--- NOTE | 2017-09-10 19:30 | NUR ---
RN NOTES PT IS RESTING COMFORTABLY IN BED WITH HOB SLIGHTLY ELEVATED. TEJA PICC LINE RUNNING NS @ 100ML/HR. EYE OINTMENT AT BEDSIDE ORDERED, TO BE APPLIED WHEN PT GOES TO SLEEP, PER PT REQUEST. PT DENIES ANY PAIN AT THIS TIME. SAFETY MEASURES ARE IN PLACE, CALL LIGHT IS IN REACH. WILL CONTINUE TO MONITOR.
[2017-09-10] MEDS: ENOXAPARIN SODIUM 40 MG/0.4 ML DISP.SYRIN SQ SCH (20:22)
[2017-09-10] MEDS: CHOLESTYRAMINE/ASPARTAME 4 G/PKT PACKET PO SCH (21:00)
[2017-09-10] MEDS ORDERED: TEMAZEPAM 7.5 MG CAPSULE PO PRN (22:00)
[2017-09-11] MEDS: LANOLIN/MIN OIL/PETROLAT,WHT 3.5 GM TUBE RIGHTEYE SCH ×12 (01:10→23:20)
[2017-09-11] MEDS: METRONIDAZOLE 500 MG TABLET PO SCH ×3 (04:29→20:48)
[2017-09-11] MEDS: VALACYCLOVIR HCL 500 MG TABLET PO SCH ×2 (04:30→16:48)
[2017-09-11 06:31] LABS: HEMATOCRIT 28 % (33-45); HEMOGLOBIN 8.8 g/dL (11.5-14.8); MEAN CORPUSCULAR HEMOGLOBIN 28 PG (26.0-33.0); MEAN CORPUSCULAR HGB CONC 32 g/dl (31.0-36.0); MEAN CORPUSCULAR VOLUME 87 fL (82-100); PLATELET COUNT (AUTO) 342 /CMM (150-450); RDW COEFFICIENT OF VARIATION 25.6 (11.5-15.0); RED BLOOD CELL COUNT(AUTO) 3.18 MIL/uL (4.0-5.2)
[2017-09-11 06:39] LABS: CALCIUM, SERUM 8.5 mg/dL (8.5-10.1); CREATININE 0.8 mg/dL (0.6-1.3); POTASSIUM 3.8 mmol/L (3.5-5.1)
--- NOTE | 2017-09-11 06:39 | NUR ---
MS RN NOTE PATIENT STABLE. ALL NEEDS MET AND ATTENDED TO. NO REPSIRAORY DISTRESS OR SOB AT THIS TIME. RECEIVING 3L 02 VIA NASAL CANNULA. TEJA PICC LINE IN PLACE, WITH NO S/S OF INFECTION NOTED. FLUIDS RUNNING ORDERED. KEPT CLEAN, DRY, AND COMFORTABLE. WILL ENDORSE TO DAY SHIFT FOR CHUY.
[2017-09-11 06:41] LABS: WHITE BLOOD COUNT (AUTO) 54.3 K/uL (4.3-11.0)
--- NOTE | 2017-09-11 06:48 | NUR ---
MS RN NOTE RECEIVED CALL FROM LAB. WBC'S ARE 54.3. LEFT MESSAGE FOR DR. SULLIVAN. WILL ENDORSE TO DAY SHIFT.
[2017-09-11 06:53] LABS: INR 1.22 (0.87-1.13); PROTHROMBIN TIME 12.7 SECS (9.5-12.7)
--- NOTE | 2017-09-11 06:54 | NUR ---
MS RN NOTE SPOKE TO DR. SULLIVAN. NO NEW ORDERS AT THIS TIME. PATIENT ALREADY TAKING FLAGYL.
--- NOTE | 2017-09-11 07:45 | NUR ---
RN OPENING NOTES RECEIVED PATIENT ION BED, ALERT AND ORIENTED X 3, ABLE TO VERBALIZE NEEDS, NOTED WITH NO SOB, BREATHING EVEN AND UNLABORED, NO C/O PAIN AT THIS TIME. ALL PATIENT'S NEEDS ATTENDED TO. PLACED CALL LIGHT WITHIN EASY REACH. WILL CONTINUE TO MONITOR.
[2017-09-11 08:00] VITALS: BP 141/90
[2017-09-11 08:36] LABS: BILIRUBIN,TOTAL 0.5 mg/dL (0.2-1.0)
[2017-09-11] MEDS: LEVOTHYROXINE SODIUM 50 MCG TABLET PO SCH (08:53)
[2017-09-11] MEDS: NYSTATIN (PYXIS) 500,000 UNIT/5 ML ORAL.SUSP PO SCH ×3 (08:53→16:49)
[2017-09-11] MEDS: predniSONE 20 MG TABLET PO SCH (08:53)
[2017-09-11] MEDS: CHOLESTYRAMINE/ASPARTAME 4 G/PKT PACKET PO SCH ×2 (08:53→20:54)
[2017-09-11] MEDS: ACIDOPHILUS/BULGARICUS 1 EACH TAB.CHEW PO SCH ×3 (08:54→16:49)
[2017-09-11] MEDS: GABAPENTIN 300 MG CAPSULE PO SCH ×4 (08:55→20:48)
[2017-09-11 09:30] LABS: BAND % (MANUAL) 16 % (0.0-5.0); LYMPHOCYTES % (MANUAL) 6 % (16-48); MONOCYTES % (MANUAL) 19 % (0-11.0); NEUTROPHILS % (MANUAL) 59 (42-76)
--- NOTE | 2017-09-11 11:22 | NUR ---
WOUND CARE CONSULT: PT PRESENTS WITH SMALL ABRASIONS TO LEFT HIP AREA AND LEFT FOREARM. SKIN IS FRAGILE. PT NOTED TO HAVE RECTAL TUBE. ALL SKIN PROTECTION MEASURES IN PLACE AND DISCUSSED WITH NURSING STAFF. PT ABLE TO ASSIST WITH TURNING/REPOSITIONING IN BED. WILL SEE PRN. DICKERSON IN AGREEMENT WITH PLAN OF CARE. Addendum: 09/11/17 at 1124 by JUAN CANCHOLA WNDNU Amended: Links added.
[2017-09-11] MEDS: ONDANSETRON HCL/PF 4 MG/2 ML VIAL IVP PRN (11:53)
[2017-09-11] MEDS: FLUCONAZOLE IN NS 100 MG in PREMIX 1 EA IV SCH ×2 (15:02)
[2017-09-11 16:00] VITALS: BP 140/90
[2017-09-11] MEDS: BACITRACIN/POLYMYXIN B 15 GM TUBE TP SCH (16:49)
[2017-09-11] MEDS: HYDROCODONE/APAP 10/325MG 1 EA TABLET PO PRN (18:43)
[2017-09-11] MEDS: ERYTHROMYCIN BASE OPHTH 3.5 GM TUBE EACHEYE SCH (18:45)
--- NOTE | 2017-09-11 18:55 | NUR ---
RN CLOSING NOTES PATIENT UP IN BED, AWAKE AND ALERT X 3 WITH EPISODES OF CONFUSION, NO C/O PAIN AT THIS TIME, NO SOB, BREATHING EVEN AND UNLABORED, ABLE TO VERBALIZE NEEDS. ALL PATIENT'S NEEDS ATTENDED TO, PLACED CALL LIGHT WITHIN EASY REACH.
--- NOTE | 2017-09-11 19:20 | NUR ---
RN NOTES RECEIVED PT AWAKE, ALERT AND ORIENTED X2-3 WITH PERIODS OF CONFUSION NOTED. ON ROOM AIR AND TOLERATED WELL. LEFT UPPER ARM PICC LINE PATENT AND INTACT. DENIES PAIN, NAUSEA AND VOMITING AT THIS TIME. URINARY CATHETER INTACT WITH CLEAR YELLOW URINE OUTPUT NOTED. FLEXI SEAL INTACT WITH CLEAR YELLOW WATERY STOOL NOTED. BOTH HEELS ELEVATED. KEPT BED IN THE LOWEST POSITION, 2 SIDE RAILS UP, WITH CALL LIGHT WITHIN REACH. WILL CONTINUE TO MONITOR PT.
[2017-09-11 20:00] VITALS: BP 130/82
[2017-09-11] MEDS: ENOXAPARIN SODIUM 40 MG/0.4 ML DISP.SYRIN SQ SCH (20:52)
[2017-09-11 22:00] VITALS: BP 130/82
[2017-09-12] MEDS: LANOLIN/MIN OIL/PETROLAT,WHT 3.5 GM TUBE RIGHTEYE SCH ×12 (01:25→23:54)
[2017-09-12] MEDS: METRONIDAZOLE 500 MG TABLET PO SCH ×3 (04:38→20:11)
[2017-09-12] MEDS: VALACYCLOVIR HCL 500 MG TABLET PO SCH ×2 (04:38→16:20)
[2017-09-12] MEDS: LEVOTHYROXINE SODIUM 50 MCG TABLET PO SCH (06:31)
--- NOTE | 2017-09-12 06:54 | NUR ---
RN NOTES PT SLEPT WELL WITH IN THE SHIFT. VITAL SIGNS STABLE, AFEBRILE. STILL NOTED WITH PERIODS OF CONFUSION. NO EPISODE OF NAUSEA AND VOMITING. NO COMPLAIN OF PAIN. PT NOTED DRINKING A LOT OF JUICE AND WATER. STILL NOTED WITH WATERY YELLOW STOOL ON THE FLEXI SEAL. ALL DUE MEDS GIVEN. ALL NEEDS ATTENDED. FALL PRECAUTION AND SAFETY MEASURES OBSERVED. WILL ENDORSE TO MORNING RN FOR CONTINUITY OF CARE.
--- NOTE | 2017-09-12 07:30 | NUR ---
RN INITIAL NOTES RECEIVED PT AWAKE, ALERT AND ORIENTED X 3, VERBALLY RESPONSIVE, WITH NO C/O PAIN AT THIS TIME, NO C/O NAUSEA AND VOMITING. NO SOB, BREATHING EVEN AND UNLABORED. ALL PATIENT'S NEEDS ATTENDED TO AT THIS TIME. PLACED CALL LIGHT WITHIN EASY REACH. WILL CONTINUE TO MONITOR.
[2017-09-12 08:00] VITALS: BP_SYST 132; BP_DIAS 66; BP_DIAS 86
[2017-09-12] MEDS: NYSTATIN (PYXIS) 500,000 UNIT/5 ML ORAL.SUSP PO SCH ×3 (08:45→16:20)
[2017-09-12] MEDS: ACIDOPHILUS/BULGARICUS 1 EACH TAB.CHEW PO SCH ×3 (08:45→16:20)
[2017-09-12] MEDS: predniSONE 20 MG TABLET PO SCH (08:45)
[2017-09-12] MEDS: GABAPENTIN 300 MG CAPSULE PO SCH ×4 (08:45→20:11)
[2017-09-12] MEDS: CHOLESTYRAMINE/ASPARTAME 4 G/PKT PACKET PO SCH ×2 (08:46→20:11)
[2017-09-12] MEDS: BACITRACIN/POLYMYXIN B 15 GM TUBE TP SCH (08:49)
--- NOTE | 2017-09-12 10:37 | NUR ---
STAT US ABD SPOKE WITH DR. LEONE AND RECEIVED NEW ORDER FOR STAT US OF ABDOMEN. ALL ORDERS NOTED AND CARRIED OUT. INFORMED PATIENT AND AGREES.
--- NOTE | 2017-09-12 10:37 | NUR ---
RN NOTES RECEIVED CALL FROM DR. LEONE TO SEND COPIES OF PATIENT'S LUMBAR PUNCTURE CULTURE RESULT, MRI OF BRAIN AND PATHOLOGY REPORT OF CSF VIA FAX OT DR. RITTER, PATIENT'S ONCOLOGIST. ALL DOCUMENTS SENT VIA FAX. CONFIRMED RECEIPT WITH PATIENT'S SISTER.
--- NOTE | 2017-09-12 10:37 | NUR ---
D/C RECTAL TUBE/FLEXI SEAL INFORMED DR. LEONE THAT FLEXI SEAL/RECTAL TUBE WAS DISLODGED, PT WITH NO C/O PAIN. NOTED PT WITH FORMED STOOL. RECEIVED NEW ORDER TO D/C FLEXI SEAL RECTAL TUBE. ALL ORDERS NOTED AND CARRIED OUT.PATIENT INFORMED AND AGREES.
[2017-09-12 11:02] LABS: CALCIUM, SERUM 9.2 mg/dL (8.5-10.1); POTASSIUM 3.9 mmol/L (3.5-5.1)
[2017-09-12] MEDS: HYDROCODONE/APAP 10/325MG 1 EA TABLET PO PRN ×2 (11:50→20:13)
--- NOTE | 2017-09-12 12:28 | NUR ---
ABD US RESULT RECEIVED ABD US RESULT, RELAYED TO DR. LEONE WITH NO NEW ORDERS.
[2017-09-12] MEDS: FLUCONAZOLE IN NS 100 MG in PREMIX 1 EA IV SCH ×2 (13:04)
[2017-09-12 16:00] VITALS: BP 126/89
--- NOTE | 2017-09-12 17:30 | NUR ---
RN CLOSING NOTES PATIENT IN BED, AWAKE, ALERT X3, VERBALLY RESPONSIVE, NOTED WITH EPISODES OF CONFUSION. ABLE TO WALK WITH PHYSICAL THERAPY DURING THE SHIFT. NO SOB, NO C/O PAIN AT THIS TIME. ALL PATIENT'S ATTENDED TO AT THIS TIME. PLACED CALL LIGHT WITHIN EASY REACH. SAFETY PRECAUTIONS IN PLACE.
[2017-09-12] MEDS: ERYTHROMYCIN BASE OPHTH 3.5 GM TUBE EACHEYE SCH (17:46)
[2017-09-12] MEDS: ENOXAPARIN SODIUM 40 MG/0.4 ML DISP.SYRIN SQ SCH (20:12)
[2017-09-12 21:06] VITALS: BP 128/62
[2017-09-12 22:00] VITALS: BP 128/62
[2017-09-13] MEDS: LANOLIN/MIN OIL/PETROLAT,WHT 3.5 GM TUBE RIGHTEYE SCH ×6 (01:00→11:51)
[2017-09-13] MEDS: HYDROCODONE/APAP 10/325MG 1 EA TABLET PO PRN ×3 (04:31→20:56)
[2017-09-13] MEDS: METRONIDAZOLE 500 MG TABLET PO SCH ×2 (04:31→14:29)
[2017-09-13] MEDS: VALACYCLOVIR HCL 500 MG TABLET PO SCH ×2 (04:31→19:15)
--- NOTE | 2017-09-13 06:23 | NUR ---
RN CLOSING NOTES PATIENT IN STABLE CONDITION. ALL NEEDS MET AND ATTENDED TO. WILL ENDORSE TO DAY SHIFT FOR CHUY.
[2017-09-13 07:01] LABS: EOSINOPHILS # (AUTO) 0.1 /CMM (0.0-0.7); EOSINOPHILS % (AUTO) 0.1 % (0.0-6.0); HEMATOCRIT 30 % (33-45); HEMOGLOBIN 9.7 g/dL (11.5-14.8); LYMPHOCYTES # (AUTO) 8.3 /CMM (0.8-4.8); LYMPHOCYTES % (AUTO) 11.5 % (20.0-44.0); MEAN CORPUSCULAR HEMOGLOBIN 27 PG (26.0-33.0); MEAN CORPUSCULAR HGB CONC 32 g/dl (31.0-36.0); MEAN CORPUSCULAR VOLUME 85 fL (82-100); MONOCYTES # (AUTO) 1.5 /CMM (0.1-1.30); MONOCYTES % (AUTO) 2.1 % (2.0-12.0); NEUTROPHILS % (AUTO) 86.3 % (43.0-81.0); PLATELET COUNT (AUTO) 301 /CMM (150-450); RDW COEFFICIENT OF VARIATION 24.6 (11.5-15.0); RED BLOOD CELL COUNT(AUTO) 3.55 MIL/uL (4.0-5.2)
[2017-09-13 07:04] LABS: CALCIUM, SERUM 8.6 mg/dL (8.5-10.1); CREATININE 0.8 mg/dL (0.6-1.3)
[2017-09-13 07:27] LABS: WHITE BLOOD COUNT (AUTO) 71.8 K/uL (4.3-11.0)
--- NOTE | 2017-09-13 07:30 | NUR ---
RECEIVED PT. ALERT AND ORIENTED X 3-4.A LITTLE SLUGGISH BUT ALERT.SKIN WARM AND DRY,VS STABLE.
[2017-09-13] MEDS: LEVOTHYROXINE SODIUM 50 MCG TABLET PO SCH (08:07)
--- NOTE | 2017-09-13 08:07 | NUR ---
MED FOR PAIN WITH NORCO.
[2017-09-13 09:00] VITALS: BP 131/87
[2017-09-13] MEDS: GABAPENTIN 300 MG CAPSULE PO SCH ×4 (09:47→20:55)
[2017-09-13] MEDS: ACIDOPHILUS/BULGARICUS 1 EACH TAB.CHEW PO SCH ×3 (09:47→19:15)
[2017-09-13] MEDS: predniSONE 20 MG TABLET PO SCH (09:47)
[2017-09-13] MEDS: NYSTATIN (PYXIS) 500,000 UNIT/5 ML ORAL.SUSP PO SCH ×3 (09:47→19:15)
[2017-09-13] MEDS: CHOLESTYRAMINE/ASPARTAME 4 G/PKT PACKET PO SCH ×2 (09:47→20:52)
[2017-09-13] MEDS: BACITRACIN/POLYMYXIN B 15 GM TUBE TP SCH (09:48)
--- NOTE | 2017-09-13 10:00 | NUR ---
DR. SMITH HERE INFORMED OF HIGH WBC.STATES HE WILL CALL IN DR. MANCIA.
[2017-09-13 10:32] LABS: BAND % (MANUAL) 9 % (0.0-5.0); LYMPHOCYTES % (MANUAL) 9 % (16-48); MONOCYTES % (MANUAL) 7 % (0-11.0); NEUTROPHILS % (MANUAL) 75 (42-76)
[2017-09-13] MEDS ORDERED: POLYVINYL ALCOHOL 15 ML BOTTLE OP PRN (12:00)
--- NOTE | 2017-09-13 14:30 | NUR ---
DR. SMITH HERE AGAIN MADE AWARE PT. C/O LT. EARACHE.EXAMINED PT. AND ESTABLISHED PT. WITH LT. EAR INFECTION.
[2017-09-13] MEDS: FLUCONAZOLE IN NS 100 MG in PREMIX 1 EA IV SCH ×2 (14:47)
[2017-09-13 16:00] VITALS: BP 139/75
--- NOTE | 2017-09-13 18:00 | NUR ---
BETO ID MUSEUM EXHIBIT DESIGNER HERE AND INFORMED PT. WITH LT. EAR INFECTION PER DR. SMITH.
[2017-09-13] MEDS: ERYTHROMYCIN BASE OPHTH 3.5 GM TUBE EACHEYE SCH (19:17)
--- NOTE | 2017-09-13 19:30 | NUR ---
RN OPENING NOTES PATIENT IS IN BED, ALERT AND ORIENTED X 3. VS STABLE. NO C/O PAIN AT THIS TIME, NO C/O NAUSEA AND VOMITING. NO SOB NOTED. RESPIRATIONS EVEN AND UNLABORED. IV ACCESS ON TEJA PICC PATENT AND INTACT. BED IN LOW AND LOCKED POSITION. SIDE RAILSX2. CALL LIGHT WITHIN EASY REACH. WILL CONTINUE TO MONITOR AND ASSESS DURING THE SHIFT.
[2017-09-13 20:00] VITALS: BP 127/88
[2017-09-13] MEDS: ENOXAPARIN SODIUM 40 MG/0.4 ML DISP.SYRIN SQ SCH (20:54)
--- NOTE | 2017-09-13 20:56 | NUR ---
RN NOTES PATIENT C/O PAIN IN THE BACK. NORCO 10-325 GIVEN PRN. CONTINUE TO MONITOR.
[2017-09-13] MEDS: ONDANSETRON HCL/PF 4 MG/2 ML VIAL IVP PRN (21:54)
--- NOTE | 2017-09-13 22:04 | NUR ---
RN NOTES PATIENT C/O NAUSEA AND VOMITING. ZOFRAN 4MG/2ML GIVEN PRN. CONTINUE TO MONITOR.
[2017-09-14] MEDS: VALACYCLOVIR HCL 500 MG TABLET PO SCH ×2 (04:12→15:31)
[2017-09-14 06:33] LABS: HEMATOCRIT 30 % (33-45); HEMOGLOBIN 9.6 g/dL (11.5-14.8); LYMPHOCYTES # (AUTO) 16.3 /CMM (0.8-4.8); LYMPHOCYTES % (AUTO) 25.4 % (20.0-44.0); MEAN CORPUSCULAR HEMOGLOBIN 27 PG (26.0-33.0); MEAN CORPUSCULAR HGB CONC 32 g/dl (31.0-36.0); MEAN CORPUSCULAR VOLUME 85 fL (82-100); MONOCYTES # (AUTO) 1.6 /CMM (0.1-1.30); MONOCYTES % (AUTO) 2.5 % (2.0-12.0); NEUTROPHILS # (AUTO) 46.3 /CMM (1.8-8.9); NEUTROPHILS % (AUTO) 72.1 % (43.0-81.0); PLATELET COUNT (AUTO) 302 /CMM (150-450); RDW COEFFICIENT OF VARIATION 25.3 (11.5-15.0); RED BLOOD CELL COUNT(AUTO) 3.56 MIL/uL (4.0-5.2)
--- NOTE | 2017-09-14 06:49 | NUR ---
RN CLOSING NOTES PATIENT IS IN BED, ALERT AND ORIENTED X 3. VS STABLE. NO C/O PAIN AT THIS TIME, NO C/O NAUSEA AND VOMITING. NO SOB NOTED. RESPIRATIONS EVEN AND UNLABORED. IV ACCESS ON TEJA PICC PATENT AND INTACT. F/C IS IN PLACE, DRAINING CLEAR AND YELLOW URINE. ALL NEEDS ARE MET AND MEDICATIONS GIVEN PER MD ORDER. BED IN LOW AND LOCKED POSITION. SIDE RAILSX2. CALL LIGHT WITHIN EASY REACH. WILL ENDORSE TO RN DAY SHIFT FOR CONTINUITY OF CARE.
[2017-09-14 06:56] LABS: CALCIUM, SERUM 8.8 mg/dL (8.5-10.1); CREATININE 0.8 mg/dL (0.6-1.3); POTASSIUM 4.3 mmol/L (3.5-5.1)
[2017-09-14 07:02] LABS: WHITE BLOOD COUNT (AUTO) 64.2 K/uL (4.3-11.0)
--- NOTE | 2017-09-14 07:20 | NUR ---
MS RN Opening notes Received patient in bed with HOB elevated 90 degrees. Awake, alert and verbally responsive. Respirations are even and unlabored, not in any acute distress noted. Noted w/ TEJA picc line w/ double lumen. Patient c/o pain 6/10 and will administer pain medication as ordered and will keep patient comfortable. Will administer medications as ordered. Will continue to follow the plan of care and monitor.
[2017-09-14 07:35] LABS: INR 1.24 (0.87-1.13); PROTHROMBIN TIME 12.9 SECS (9.5-12.7)
[2017-09-14 08:00] VITALS: BP 138/98
[2017-09-14] MEDS: FLUCONAZOLE (100 MG) 100 MG TABLET PO SCH (08:37)
[2017-09-14] MEDS: NYSTATIN (PYXIS) 500,000 UNIT/5 ML ORAL.SUSP PO SCH ×3 (08:37→16:56)
[2017-09-14] MEDS: GABAPENTIN 300 MG CAPSULE PO SCH ×4 (08:37→21:18)
[2017-09-14] MEDS: ACIDOPHILUS/BULGARICUS 1 EACH TAB.CHEW PO SCH ×3 (08:38→16:56)
[2017-09-14] MEDS: LEVOTHYROXINE SODIUM 50 MCG TABLET PO SCH (08:38)
[2017-09-14] MEDS: CHOLESTYRAMINE/ASPARTAME 4 G/PKT PACKET PO SCH ×2 (08:39→21:18)
[2017-09-14] MEDS ORDERED: predniSONE 20 MG TABLET PO SCH (09:00)
[2017-09-14] MEDS: HYDROCODONE/APAP 10/325MG 1 EA TABLET PO PRN ×3 (09:07→23:20)
[2017-09-14] MEDS: CIPROFLOXACIN HCL 0.3% 5 ML BOTTLE OT SCH ×2 (09:08→17:02)
[2017-09-14] MEDS: BACITRACIN/POLYMYXIN B 15 GM TUBE TP SCH (09:12)
[2017-09-14 09:22] LABS: BAND % (MANUAL) 2 % (0.0-5.0); LYMPHOCYTES % (MANUAL) 6 % (16-48); MONOCYTES % (MANUAL) 4 % (0-11.0); NEUTROPHILS % (MANUAL) 88 (42-76)
--- NOTE | 2017-09-14 11:44 | NUR ---
RN NOTES PATIENT'S SISTER IN FACILITY WANTED TO SPEAK TO MD, CALLED DR. SMITH PER MD WILL COME TO TALK TO FAMILY, WILL CONTINUE TO MONITOR LET MD KNOW FAMILY WANTS HIM TO CALL PTS ONCOLOGIST
[2017-09-14] MEDS ORDERED: IOHEXOL-300 100 ML VIAL IV ONE (12:47)
[2017-09-14] MEDS ORDERED: CT SWABBABLE VALVE TRANS SET 1 EA INFUS.SET MC ONE (12:48)
[2017-09-14] MEDS ORDERED: IV NS 0.9% 250 ML IV ONE (12:48)
[2017-09-14 16:00] VITALS: BP 112/57
[2017-09-14] MEDS: ERYTHROMYCIN BASE OPHTH 3.5 GM TUBE EACHEYE SCH (17:23)
--- NOTE | 2017-09-14 19:11 | NUR ---
MS RN closing notes Patient Awake, alert and verbally responsive. Respirations are even and unlabored, not in any acute distress noted. Noted w/ TEJA picc line w/ triple lumen. Denies any pain at this time. Safety measures in place, all needs met and rendered. Will continue to follow the plan of care and endorse to next shift for continuity of care.
--- NOTE | 2017-09-14 19:40 | NUR ---
MS RN NOTE: PATIENT RESTING IN BED, NO ACUTE DISTRESS NOTED. BREATHING EVEN AND UNLABORED, NO SOB NOTED. PICC LINE TO TEJA IN PLACE. YUAN CATHETER IN PLACE, EMPTY AT THIS TIME. BED LOCKED AND IN LOWEST POSITION, CALL LIGHT IN REACH. WILL CONTINUE TO MONITOR.
[2017-09-14 20:00] VITALS: BP 141/88
[2017-09-14 20:15] LABS: BILIRUBIN,URINE NEGATIVE (NEGATIVE); BLOOD, URINE 1+ Ery/uL (NEGATIVE); COLOR,URINE YELLOW (YELLOW); KETONES,URINE NEGATIVE (NEGATIVE); LEUKOCYTE ESTERASE ,URINE 2+ (NEGATIVE); NITRITE, URINE NEGATIVE (NEGATIVE); PH,URINE 6.5 (5.0-8.0); PROTEIN,URINE NEGATIVE (NEGATIVE); UGLUCOSE NEGATIVE (NEGATIVE); UROBILINOGEN,URINE 0.2 EU/dL (0.2)
[2017-09-14 20:16] LABS: APPEARANCE,URINE SLIGHTLY CLOUDY (CLEAR)
[2017-09-14 21:15] LABS: BACTERIA,URINE Moderate /HPF (None Seen); SQUAMOUS EPITHELIAL CELL,UR Moderate /HPF (None Seen)
[2017-09-14] MEDS: ENOXAPARIN SODIUM 40 MG/0.4 ML DISP.SYRIN SQ SCH (21:19)
--- NOTE | 2017-09-14 23:30 | NUR ---
MS RN NOTE: PATIENT COMPLAINS OF PAIN TO BACK 05/18, NORCO 10/325MG ORAL GIVEN PER MD ORDER. WILL CONTINUE TO MONITOR.
[2017-09-15] MEDS: VALACYCLOVIR HCL 500 MG TABLET PO SCH (04:29)
[2017-09-15] MEDS: HYDROCODONE/APAP 10/325MG 1 EA TABLET PO PRN ×3 (04:35→13:44)
--- NOTE | 2017-09-15 04:35 | NUR ---
MS RN NOTE: PATIENT COMPLAINS OF PAIN TO BACK 06/18, NORCO 10/325MG ORAL GIVEN PER MD ORDER. WILL CONTINUE TO MONITOR.
--- NOTE | 2017-09-15 06:10 | NUR ---
MS RN NOTE: PATIENT RESTING IN BED, NO ACUTE DISTRESS NOTED. BREATHING EVEN AND UNLABORED, NO SOB NOTED. PICC LINE TRIPLE LUMEN TO TEJA IN PLACE. YUAN CATHETER IN PLACE, DRAINED 2500ML OF CLEAR YELLOW URINE. BED LOCKED AND IN LOWEST POSITION, CALL LIGHT IN REACH. WILL ENDORSE TO DAY NURSE TO CONTINUE WITH PLAN OF CARE.
[2017-09-15 07:30] LABS: HEMATOCRIT 30 % (33-45); HEMOGLOBIN 9.6 g/dL (11.5-14.8); MEAN CORPUSCULAR HEMOGLOBIN 27 PG (26.0-33.0); MEAN CORPUSCULAR HGB CONC 32 g/dl (31.0-36.0); MEAN CORPUSCULAR VOLUME 86 fL (82-100); PLATELET COUNT (AUTO) 247 /CMM (150-450); RDW COEFFICIENT OF VARIATION 25.2 (11.5-15.0); RED BLOOD CELL COUNT(AUTO) 3.54 MIL/uL (4.0-5.2)
[2017-09-15 07:39] LABS: WHITE BLOOD COUNT (AUTO) 50.1 K/uL (4.3-11.0)
[2017-09-15 07:41] LABS: CALCIUM, SERUM 8.6 mg/dL (8.5-10.1); CREATININE 0.8 mg/dL (0.6-1.3); POTASSIUM 4.2 mmol/L (3.5-5.1)
[2017-09-15 08:00] VITALS: BP 134/88
--- NOTE | 2017-09-15 08:00 | NUR ---
MS RN Opening notes Received patient in bed, awake, alert and verbally responsive with HOB.Respirations even and unlabored.No SOB. No acute distress noted. Noted w/ TEJA picc line w/ triple lumen, intact and patent covered with trasparent dressing. Bed in low position, locked. Side rails up x2. Hobbs catheter intact, no sediments noted, with yellow urine. Will continue to monitor accordingly.
[2017-09-15] MEDS: LEVOTHYROXINE SODIUM 50 MCG TABLET PO SCH (08:37)
[2017-09-15] MEDS ORDERED: predniSONE 20 MG TABLET PO SCH (09:00)
[2017-09-15 09:05] LABS: BAND % (MANUAL) 8 % (0.0-5.0); LYMPHOCYTES % (MANUAL) 9 % (16-48); METAMYELOCYTES % 1 % (0-0); MONOCYTES % (MANUAL) 6 % (0-11.0); NEUTROPHILS % (MANUAL) 76 (42-76)
[2017-09-15] MEDS: ACIDOPHILUS/BULGARICUS 1 EACH TAB.CHEW PO SCH ×2 (09:17→13:43)
[2017-09-15] MEDS: NYSTATIN (PYXIS) 500,000 UNIT/5 ML ORAL.SUSP PO SCH ×2 (09:17→13:43)
[2017-09-15] MEDS: CHOLESTYRAMINE/ASPARTAME 4 G/PKT PACKET PO SCH (09:17)
[2017-09-15] MEDS: FLUCONAZOLE (100 MG) 100 MG TABLET PO SCH (09:17)
[2017-09-15] MEDS: GABAPENTIN 300 MG CAPSULE PO SCH ×2 (09:17→13:43)
[2017-09-15] MEDS: BACITRACIN/POLYMYXIN B 15 GM TUBE TP SCH (09:22)
[2017-09-15] MEDS ORDERED: predniSONE 10 MG TABLET PO SCH (09:30)
[2017-09-15] MEDS: CIPROFLOXACIN HCL 0.3% 5 ML BOTTLE OT SCH (09:36)
--- NOTE | 2017-09-15 16:00 | NUR ---
MS mail carrier notes Discharge patient in stable condition. Picked up by via private car. Discharge instructions given to the patient , verbalized understanding, handed to the patient. Instructed about Primary Doctor's follow up un 1 -2 days. Discharge w/ TEJA picc line w/ triple lumen, intact and patent covered with transparent dressing, no redness or swelling. Hobbs catheter intact, no sediments noted, with yellow urine. Per Dr De Jesus discontinuation of PICC line and Hobbs catheter to be determined by Primary Doctor. Assisted to the lobby in a wheechair to the car by RN and BELT SANDER STONE in stable condition.
== END 2017-09-15 16:00 | disposition home or self-care (01) | DRG 871 ==
LOC: ER 12:10 → ICU 13:26 → MED 09-10 17:11
PROVIDERS: ADMIT Nurse Practitioner Acute Care; ATTEND Nurse Practitioner Acute Care
DX: A41.9 Sepsis, unspecified organism (principal); R65.21 Severe sepsis with septic shock; G93.40 Encephalopathy, unspecified; E87.2 Acidosis; D70.9 Neutropenia, unspecified; B37.0 Candidal stomatitis; C50.919 Malignant neoplasm of unspecified site of unspecified female breast; C79.31 Secondary malignant neoplasm of brain; C78.7 Secondary malignant neoplasm of liver and intrahepatic bile duct; D64.9 Anemia, unspecified; Z92.3 Personal history of irradiation; Z92.21 Personal history of antineoplastic chemotherapy; Z79.899 Other long term (current) drug therapy; E03.9 Hypothyroidism, unspecified; G51.0 Bell's palsy; E87.6 Hypokalemia; H66.92 Otitis media, unspecified, left ear
CPT/HCPCS: 36415; 36600; 70450-TC; 71010-TC; 71260-TC; 80048-TC; 80053-TC; 80061-TC; 80076-TC; 80202-TC; 81000-TC; 82247-TC; 82248-TC; 82962-TC; 83605-TC; 83735-TC; 84100-TC; 84443-TC; 84484-TC; 85025-TC; 85385-TC; 85610-TC; 85730-TC; 86850-TC; 87040-TC; 87081-TC; 87086-TC; 87177; 87186-TC; 87209; 97110-TC; 97112-TC; 97116-TC; 97530-TC; A4216; A4606; C1751; J1442; J1447; J1450; J1650; J2060; J2405; J2543; J3370; J3475; J7030; J7042; J7050; J7060; Q9967; Z7610